=== PATIENT | female | born 1995 | race African-American/Black ===

== ENCOUNTER 2018-01-29 07:09 | Emergency (ER) | payer OTHER ==
[~2018-01-29] VITALS: Ht 160 cm; Wt 86.0 kg
[2018-01-29 07:20] VITALS: BP 118/57
== END 2018-01-29 08:53 | disposition home or self-care (01) ==
LOC: EME 07:09
PROC: 3E0234Z Introduction of Serum, Toxoid and Vaccine into Muscle, Percutaneous Approach (ICD-10-PCS; principal; 2018-01-29)
DX: S39.012A Strain of muscle, fascia and tendon of lower back, initial encounter (principal); S81.811A Laceration without foreign body, right lower leg, initial encounter; V74.6XXA Passenger on bus injured in collision with heavy transport vehicle or bus in traffic accident, initial encounter; Y92.410 Unspecified street and highway as the place of occurrence of the external cause; Z23 Encounter for immunization; F17.200 Nicotine dependence, unspecified, uncomplicated
CPT/HCPCS: 99281; 99285